=== PATIENT | female | born 1985 | race Caucasian/White ===

== ENCOUNTER 2024-05-19 03:22 | Emergency (ER) | payer MEDICAID, SELFPAY ==
[2024-05-19 03:23] VITALS: BMI 37.2
[2024-05-19 03:50] VITALS: BP 122/86; PULSE 104; RESP 17; TEMP 37; O2SAT 100
[2024-05-19 04:41] VITALS: BP 131/84; PULSE 92; RESP 18; TEMP 36.6; O2SAT 98
[2024-05-19] MEDS: GABAPENTIN 300 MG CAPSULE 600 MG PO (04:46)
--- NOTE | 2024-05-19 04:46 | PD.EDBACK ---
ED Back Injury Pain RME/HPI General Chief Complaint: Back Pain/Injury Stated Complaint: SCIATIC PAIN Time Seen by Provider: 05/19/24 03:36 Source: patient Arrival date/time: 05/19/24 03:22 Mode of arrival: ambulatory Limitations: no limitations RME / HPI RME / HPI Narrative: 39-year-old female with past medical history of sciatica presents for evaluation of right-sided low back pain. She describes it as she sharp with radiation down the back of her right leg. She reports that this is consistent with her previous sciatica symptoms. She notes that she recently comm[place] to and from [place] over a 24-hour period with prolonged sitting in the car. She denies leg swelling, shortness of breath, chest pain, numbness, weakness, bladder and bowel incontinence. She reports that she normally takes gabapentin and naproxen for her sciatica but is out of her prescription. [place] Complaint: back pain Onset (ago): day(s) Duration: intermittent Similar Symptoms Previously: Yes Location: lumbar spine Quality: sharp Radiation: right leg Relieving factors: none Exacerbating factors: movement and supine Related Data Previous Rx's ?Medication ?Instructions ?Recorded gabapentin 300 mg capsule 300 mg PO BID scaitica 30 days 05/19/24 #60 caps naproxen 250 mg tablet 250 mg PO BID PRN pain #30 tabs 05/19/24 Allergies Allergy/AdvReac Type Severity Reaction Status Date / Time No Known Allergies Allergy Verified 05/19/24 03:23 ED Exam General Limitations: Present no limitations Course Orders Category Date Time Status Gabapentin [Neurontin] Med 05/19/24 04:26 Discontinued 600 mg PO X1 ONE Ketorolac Inj [Toradol Inj] Med 05/19/24 04:45 Discontinued 30 mg IM X1 ONE Vital Signs Vital signs: Vital Signs Temperature 98.6 F 05/19/24 03:50 Pulse Rate 104 H 05/19/24 03:50 Respiratory Rate 17 05/19/24 03:50 Blood Pressure 122/86 H 05/19/24 03:50 Pulse Oximetry (%) 100 05/19/24 03:50 Oxygen Delivery Method Room Air 05/19/24 03:50 Back Pain / Injury Medications / Prescriptions Medication administrations:: Medication Administration History Discontinued Medications Gabapentin (Gabapentin 300 Mg Capsule) 600 mg PO X1 ONE Stop: 05/19/24 04:27 Ketorolac Tromethamine (Ketorolac Inj 30 Mg/Ml Vial) 30 mg IM X1 ONE Stop: 05/19/24 04:46 Discharge Plan Plan Patient Disposition: HOME (Self Care) Disposition Comment: stable Prescriptions/Referrals Prescriptions/Med Rec: New gabapentin 300 mg capsule 300 mg PO BID 30 Days Qty: 60 0RF naproxen 250 mg tablet 250 mg PO BID PRN (Reason: pain) Qty: 30 0RF Referrals: No Primary/Family,Physician [Primary Care Provider] - In 1 week Problem List Clinical Impression: Sciatica Patient/Caregiver Discharge Instructions Other Activity Instructions:: Take gabapentin as prescribed for sciatica pain. Take naproxen as needed for back pain. Follow-up with primary care within the next 2 to 3 days for further evaluation and treatment of sciatica. Return to the ED if your symptoms worsen or change. Education Materials: ED Sciatica Print Language: Tamazight Stand Alone Forms: Litzy Award Info., Patient Portal Info Letter PA/ENGINEERING SPECIALIST TECHNICIAN Supervising Physician PA/RA Supervising Physician: Dr. Westbrook
[2024-05-19] MEDS: KETOROLAC INJ 30 MG/ML VIAL IM (04:47)
== END 2024-05-19 04:52 | disposition home or self-care (01) ==
PROVIDERS: Emergency Provider Emergency Medicine
DX: M54.41 Lumbago with sciatica, right side (principal)
CPT/HCPCS: 96372; 99283; J1885; A9270

== ENCOUNTER 2024-05-21 13:00 | Emergency (ER) | payer MEDICAID, SELFPAY ==
[2024-05-21 13:24] VITALS: BP 151/91; PULSE 117; RESP 20; TEMP 36.6; O2SAT 99
[2024-05-21] MEDS: KETOROLAC INJ 60 MG/2 ML VIAL IM (13:48)
[2024-05-21] MEDS: DEXAMETHASONE SOD PHOS INJ 10 MG/ML VIAL IM (13:49)
--- NOTE | 2024-05-21 14:00 | PD.EDADULT ---
ED General RME/HPI General Stated complaint: BACK PAIN Time Seen by Provider: 05/21/24 13:34 Arrival date/time: 05/21/24 13:00 RME / HPI RME / HPI narrative: 39-year-old female patient came in for evaluation regarding worsening sciatica. Patient told me that he had a history of sciatica in the past, was taking naproxen and gabapentin but ran out of medication. Was seen here 3 days ago for the same complaints however this morning despite gabapentin and naproxen sciatica is getting worse, patient is moaning and crying, pain radiates to the left posterior leg. Patient also complained of back pain. Denies any bladder incontinence denies any bowel incontinence. Denies any saddle anesthesia. Patient denies any fever. No medication was taken prior travel. Patient was brought in by EMS. Related Data Previous Rx's ?Medication ?Instructions ?Recorded gabapentin 300 mg capsule 300 mg PO BID scaitica 30 days 05/19/24 #60 caps naproxen 250 mg tablet 250 mg PO BID PRN pain #30 tabs 05/19/24 Allergies Allergy/AdvReac Type Severity Reaction Status Date / Time No Known Allergies Allergy Verified 05/19/24 03:23 Review of Systems Review of Systems Narrative Review of Systems: Review of system reviewed and within normal limits except mentioned in HPI ED Exam Narrative Physical exam: VITAL SIGNS: Reviewed. GENERAL APPEARANCE: Alert and interactive, follows commands, no acute distress, HEAD AND FACE: Non-traumatic. ENT: PERRL, pink conjunctivitis, eyelid no trauma, Mucous membrane moist. NECK: Supple, nontender, no nuchal rigidity. CHEST: No tenderness, no crepitus, no paradoxical movement, no retractions. LUNGS: Clear, well ventilated, symmetric, no rales, no wheezing, no ronchi, no stridor, good breath sounds bilaterally. HEART: Regular rate, regular rhythm, no murmur, no gallops. ABDOMEN: Soft, positive bowel sounds, nondistended, no guarding, nontender, no rebound, no masses, RECTAL: Deferred. GENITAL: Deferred. NEUROLOGICAL: Gross motor function intact sensory function intact, Appropriate for age. MUSCULOSKELETAL: low back tenderness, full range of motion. EXTREMITIES: Left posterior thigh and leg tenderness, full range of motion. SKIN: Color pink, dry, no rash, no lacerations, no abrasions, no contusions. LYMPHATICS: Deferred. Course Quality Measures none Orders Category Date Time Status CBC Stat Lab 05/21/24 18:02 Completed Comprehensive Metabolic Panel Stat Lab 05/21/24 18:02 Completed Partial Thromboplastin Time Stat Lab 05/21/24 18:02 Completed Prothrombin Time with INR Stat Lab 05/21/24 18:02 Completed Dexamethasone Inj [Decadron Inj] Med 05/21/24 13:34 Discontinued 10 mg IM X1 ONE Diazepam [Valium] Med 05/21/24 14:27 Discontinued 10 mg PO X1 ONE Ketorolac Inj [Toradol Inj] Med 05/21/24 13:34 Discontinued 60 mg IM X1 ONE Morphine Inj Med 05/21/24 17:34 Discontinued 5 mg IM X1 ONE Vital Signs Vital signs: Vital Signs Temperature 97.9 F 05/21/24 13:24 Pulse Rate 117 H 05/21/24 13:24 Respiratory Rate 20 05/21/24 13:24 Blood Pressure 151/91 H 05/21/24 13:24 Pulse Oximetry (%) 99 05/21/24 13:24 Oxygen Delivery Method Room Air 05/21/24 13:[address] [facility] Patient data External records reviewed:: None Clinical information provided by:: patient Social determinants that could affect healthcare access:: none Patient has the following chronic illnesses:: History of sciatica How is presenting disease/condition affected by chronic disease/condition?: exacerbated by Evaluation data The following diagnostics were reviewed and interpreted by me:: lab results and radiology exam(s) Lab and/or radiology exams considered but not ordered:: None elopement Interpretation Summary: Elopement Medications Medications considered but not ordered:: None Medication administrations:: Medication Administration History Discontinued Medications Dexamethasone Sodium Phosphate (Dexamethasone Sod Phos Inj 10 Mg/Ml Vial) 10 mg IM X1 ONE Stop: 05/21/24 13:35 Last Admin: 05/21/24 13:49 Dose: 10 mg Documented By: OA Diazepam (Diazepam 5 Mg Tablet) 10 mg PO X1 ONE Stop: 05/21/24 14:28 Last Admin: 05/21/24 14:33 Dose: 10 mg Documented By: OA Ketorolac Tromethamine (Ketorolac Inj 60 Mg/2 Ml Vial) 60 mg IM X1 ONE Stop: 05/21/24 13:35 Last Admin: 05/21/24 13:48 Dose: 60 mg Documented By: OA Morphine Sulfate (Morphine Sulf Inj 10 Mg/Ml Vial) 5 mg IM X1 ONE Stop: 05/21/24 17:35 Last Admin: 05/21/24 17:43 Dose: 5 mg Documented By: Morphine Toradol diazepam and Decadron Consultations Consultation(s) initiated? (list below): No Diagnosis Differential Diagnosis ED Complaint MDM: Leg pain sciatica, drug-seeking behavior Most likely diagnosis given after review of the tests above:: Sciatica Admission Indicated Admission indicated?: not indicated (Elopement) Explain why admission is indicated or not indicated:: None Admission Request Was there a request for admission?: No Disposition Plan Disposition Plan: other (specify) Medical Decision Making MDM Narrative MDM Narrative: Patient eloped from the emergency room Differential Diagnosis Differential Diagnosis: Leg pain sciatica, drug-seeking behavior Lab Data 05/21/24 18:02 05/21/24 18:02 Labs: Lab Results 05/21/24 Range/Units 18:02 WBC 10.4 (3.6-11.0) Thou/mm3 RBC 4.72 (4.00-5.20) Miln/mm3 Hgb 13.9 (12.0-16.0) g/dL Hct 40.3 (36.0-46.0) % MCV 85 (80-100) fL MCH 29.4 (25.0-35.0) pg MCHC 34.5 (31.0-37.0) g/dl RDW Std Deviation 35.9 L (36.4-46.3) fL Plt Count 332 (140-440) Thou/mm3 Neut % (Auto) 94 H (37-80) % Lymph % (Auto) 5 L (10-50) % Grimes % (Auto) 1 (0-12) % Eos % (Auto) 0 (0-10) % Baso % (Auto) 0 (0-2.5) % Neut # (Auto) 9.8 H (1.8-7.7) Thou/mm3 Lymph # (Auto) 0.5 L (1.0-4.8) Thou/mm3 Grimes # (Auto) 0.1 (0.0-0.8) Thou/mm3 Eos # (Auto) 0.0 (0.0-0.5) Thou/mm3 Baso # (Auto) 0.0 (0.0-0.2) Thou/mm3 Immature Gran # (Auto) 0.02 H (0.00-0.00) Thou/mm3 Absolute Nucleated RBC 0.00 (0.00-0.00) Thou/mm3 Immature Gran % 0 (0-0) % Nucleated RBC % 0 (0) /100 WBC PT 10.9 (9.0-12.2) Seconds INR 1.0 (0.9-1.3) APTT 26.7 (22.0-36.0) Seconds Sodium 134 L (136-145) mMol/L Potassium 4.6 (3.4-5.1) mMol/L Chloride 99 (98-107) mMol/L Carbon Dioxide 25.1 (20.0-31.0) mMol/L Anion Gap 10 (7-16) BUN 17 (9-23) mg/dL Creatinine 0.8 (0.6-1.3) mg/dL Estim Creat Clear Calc 113.8 (>60) mL/min eGFR > 60 (60 - ) See Note BUN/Creatinine Ratio 21 H (12-20) Ratio Glucose 105 (74-106) mg/dL Calculated Osmolality 269 L (275-295) Calcium 9.5 (8.3-10.6) mg/dL Corrected Calcium 9.5 (8.5-10.1) mg/dL Total Bilirubin 0.8 (0.3-1.2) mg/dL AST 20 (0-34) U/L ALT 13 (10-49) U/L Alkaline Phosphatase 72 (46-116) U/L Total Protein 7.9 (5.7-8.2) gm/dL Albumin 4.5 (3.5-5.0) gm/dL Globulin 3.4 (2.3-3.5) gm/dL Albumin/Globulin Ratio 1.3 (1.2-2.2) Discharge Plan Plan Patient Disposition: Elopement Prescriptions/Referrals Prescriptions/Med Rec: No Action gabapentin 300 mg capsule 300 mg PO BID 30 Days Qty: 60 0RF naproxen 250 mg tablet 250 mg PO BID PRN (Reason: pain) Qty: 30 0RF Referrals: No Primary/Family,Physician [Primary Care Provider] - In 1 week Problem List Clinical Impression: Sciatica Patient/Caregiver Discharge Instructions Print Language: Arabic
[2024-05-21 14:26] VITALS: BMI 41.1
[2024-05-21] MEDS: DIAZEPAM 5 MG TABLET 10 MG PO (14:33)
--- NOTE | 2024-05-21 17:35 | PC.NURSE ---
PREETI Karimi gave verbal order to this service writer for MS 5mg IM x1 now for severe pain.
[2024-05-21] MEDS: MORPHINE SULF INJ 10 MG/ML VIAL 5 MG IM (17:43)
[2024-05-21 18:20] LABS: Basophils % (Auto) 0 % (0-2.5); Eosinophils % (Auto) 0 % (0-10); Hematocrit 40.3 % (36.0-46.0); Hemoglobin 13.9 g/dL (12.0-16.0); Immature Granulocytes % (Auto) 0 % (0-0); Immature Granulocytes Auto 0.02 Thou/mm3 (0.00-0.00); Lymphocytes # (Auto) 0.5 Thou/mm3 (1.0-4.8); Lymphocytes % (Auto) 5 % (10-50); Mean Corpuscular HGB Conc 34.5 g/dl (31.0-37.0); Mean Corpuscular Hemoglobin 29.4 pg (25.0-35.0); Mean Corpuscular Volume 85 fL (80-100); Monocytes # (Auto) 0.1 Thou/mm3 (0.0-0.8); Monocytes % (Auto) 1 % (0-12); Neutrophils # (Auto) 9.8 Thou/mm3 (1.8-7.7); Neutrophils % (Auto) 94 % (37-80); Nucleated Red Blood Cell % 0 /100 WBC (0); Platelet Count 332 Thou/mm3 (140-440); RDW Standard Deviation 35.9 fL (36.4-46.3); Red Blood Count 4.72 Miln/mm3 (4.00-5.20); White Blood Count 10.4 Thou/mm3 (3.6-11.0)
[2024-05-21 18:26] LABS: Alanine Aminotransferase 13 U/L (10-49); Albumin, Serum 4.5 gm/dL (3.5-5.0); Albumin/Globulin Ratio 1.3 (1.2-2.2); Alkaline Phosphatase 72 U/L (46-116); Anion Gap 10 (7-16); Aspartate Amino Transferase 20 U/L (0-34); BUN/Creatinine Ratio 21 Ratio (12-20); Bilirubin,Total 0.8 mg/dL (0.3-1.2); Blood Urea Nitrogen 17 mg/dL (9-23); Calcium 9.5 mg/dL (8.3-10.6); Calcium (Corrected) 9.5 mg/dL (8.5-10.1); Carbon Dioxide 25.1 mMol/L (20.0-31.0); Chloride 99 mMol/L (98-107); Creatinine (Component) 0.8 mg/dL (0.6-1.3); Estimated Creatinine Clearance 113.8 mL/min (>60); Globulin 3.4 gm/dL (2.3-3.5); Glucose 105 mg/dL (74-106); Osmolality,Calculated 269 (275-295); Potassium 4.6 mMol/L (3.4-5.1); Sodium 134 mMol/L (136-145); Total Protein 7.9 gm/dL (5.7-8.2); eGFR > 60 See Note
[2024-05-21 18:28] LABS: Partial Thromboplastin Time 26.7 Seconds (22.0-36.0); Prothrombin Time 10.9 Seconds (9.0-12.2)
--- NOTE | 2024-05-21 20:37 | PC.NURSE ---
Patient found in hallway by RT struggling to walk at 1850, staff assisted patient into wheelchair. Patient stated I'm leaving, take me to the door . This designer writer encouraged patient to stay for imaging studies and further pain management, patient stated I am getting the fuck out of here and preceded to exit to lobby. Patient refused to sign an AMA form. Provider Trev made aware.
== END 2024-05-21 19:00 | disposition left against medical advice (07) ==
PROVIDERS: Nurse Practitioner Family; Emergency Provider Emergency Medicine
DX: M54.42 Lumbago with sciatica, left side (principal)
CPT/HCPCS: 36415; 80053; 80307; 81025; 85025; 85610; 85730; 96372; 99281; J1100; J1885; J2270; A9270

== ENCOUNTER → 2024-07-15 | Outpatient (CLI) | payer MEDICAID, SELFPAY ==
--- NOTE | 2024-07-15 08:00 | XR_ITS ---
Examination: MRI lumbar spine without contrast Date and time of exam: July 15, 2024 0913 hours INDICATIONS: Onset low back pain beginning 2 months ago difficulty walking, pain radiates down the left side Technique: Multiple MRI axial and sagittal sections lumbar spine. Sagittal T2-weighted images, TR 3500, TE 118 T1 weighted transverse sections, TR 688 T8.5, T2-weighted sagittal sections T1 weighted sagittal sections TR 621, TE 30 T2 axial sections, TR 4, 190, TE 84. Findings: Satisfactory alignment lumbar vertebral bodies on the lateral view Moderate disc narrowing posteriorly L5-S1 Normal marrow signal lumbar vertebral bodies No lumbar fracture No spondylolisthesis L5-S1 10 mm left paracentral subarticular foraminal disc bulge displacing the left S1 nerve root and producing moderate left L5 ganglionic compression More cephalad levels are unremarkable IMPRESSION: L5-S1 large, 10 mm, left paracentral subarticular foraminal disc bulge displacing the left S1 nerve root and producing moderate left L5 ganglionic compression
== END | disposition home or self-care (01) ==
PROVIDERS: PCP Family Medicine; Referring Provider Physician Assistant; Visit Provider Physician Assistant
DX: M51.370 Other intervertebral disc degeneration, lumbosacral region with discogenic back pain only (principal); G95.20 Unspecified cord compression
CPT/HCPCS: 72148

== ENCOUNTER → 2024-10-02 | Outpatient (CLI) | payer MEDICAID, SELFPAY ==
--- NOTE | 2024-10-02 16:31 | XR_ITS ---
Examination: Lumbar spine 7 views TECHNIQUE: AP, lateral, coned-down lateral lower lumbar spine, standing lateral flexion, standing lateral extension, RPO, LPO, 7 views Date and time: October 02, 2024, 1649 hours INDICATIONS: Low back pain beginning 4 months ago. FINDINGS: Thoracolumbar dextroscoliosis 6 degrees Mild osteopenia Intrauterine device slightly left of midline Mild diffuse facet arthropathy No lumbar fracture Moderate disc narrowing L5-S1 Significantly reduced range of motion between flexion and extension With flexion 3 mm anterolisthesis L5 on S1 IMPRESSION: Moderate degenerative disc disease L5-S1 With flexion 3 mm anterolisthesis L5 on S1
== END | disposition home or self-care (01) ==
LOC: CDIM 16:25
PROVIDERS: PCP Family Medicine; Referring Provider Physician Assistant; Visit Provider Physician Assistant
DX: M51.372 Other intervertebral disc degeneration, lumbosacral region with discogenic back pain and lower extremity pain (principal)
CPT/HCPCS: 72114

== ENCOUNTER 2024-10-30 01:57 | Emergency (ER) | payer MEDICAID, SELFPAY ==
[2024-10-30 01:58] VITALS: BMI 36.1
[2024-10-30 02:36] VITALS: BP 135/86; PULSE 95; RESP 16; TEMP 36.9; O2SAT 97
[2024-10-30 03:23] LABS: Strep A Rapid Negative (Negative)
--- NOTE | 2024-10-30 04:07 | EDNOTE_ITS ---
Upper Respiratory Inf. RME/HPI General Chief Complaint: Flu Like Symptoms Stated Complaint: FLU LIKE SYMPTOMS Time Seen by Provider: 10/30/24 02:48 Arrival date/time: 10/30/24 01:57 39F with history of asthma and possible lupus/RA (not on biologic) presents to ED with 1 day of cough, sore throat, body aches, and fevers/chills. Recent COVID contact. Limitations: no limitations Related Data Previous Rx's ?Medication ?Instructions ?Recorded naproxen 250 mg tablet 250 mg PO BID PRN pain #30 t abs 05/19/24 Allergies Allergy/AdvReac Type Severity Reaction Status Date / Time No Known Allergies Allergy Verified 05/19/24 03:23 Review of Systems Review of Systems Systems Reviewed: All systems reviewed, normal except as documented Constitutional Constitutional: Reports system reviewed and no additional complaints, except as documented, Reports as per HPI, Reports body ache(s), Reports chills, Reports fever(s) and Denies headache(s) ENT Ears, Nose, Mouth, and Throat: Reports as per HPI, Denies disequilibrium, Denies headache(s) and Reports sore throat Cardiovascular Cardiovascular: Reports system reviewed and no additional complaints, except as documented, Denies chest pain and Denies dyspnea Respiratory Respiratory: Reports system reviewed and no additional complaints, except as documented, Reports as per HPI, Reports cough and Denies dyspnea Gastrointestinal Gastrointestinal: Reports system reviewed and no additional complaints, except as documented, Denies abdominal pain, Denies nausea and Denies vomiting Neurologic Neurologic: Reports system reviewed and no additional complaints, except as do cumented, Denies confusion, Denies disequilibrium and Denies headache(s) Psychiatric Psychiatric: Denies confusion Past Medical History Social History SMOKING STATUS: Never smoker ED Exam General Limitations: Present no limitations General appearance: Present alert and in no apparent distress Head Head exam: Present atraumatic Eye Eye exam: Present normal appearance, PERRL and EOMI ENT ENT exam: Present mucous membranes moist Expanded ENT Exam Throat exam: Present tonsillar erythema; Absent tonsillomegaly, tonsillar exudate, R peritonsillar mass, L peritonsillar mass or muffled voice Neck Neck exam: Present normal inspection, full ROM and trachea midline Chest Chest inspection: Present normal inspection and symmetric chest wall rise Respiratory Respiratory exam: Present normal lung sounds bilaterally Cardiovascular Cardiovascular exam: Present regular rate, normal rhythm and normal heart sounds Abdominal Exam Abdominal exam: Present soft and normal bowel sounds Extremities Exam Extremities exam: Present normal inspection and full ROM Back Exam Back exam: Present normal inspection and full ROM Neurological Exam Neurological exam: Present alert, oriented X3 and CN II-XII intact Psychiatric Psychiatric exam: Present normal affect and normal mood Skin Skin exam: Present warm, dry, intact and normal color Course Quality Measures none Orders Category Date Time Status Bedside COVID-19 Antigen Test NOW Care 10/30/24 02:15 Completed Bedside Influenza A&B Antigen Test NOW Care 10/30/24 02:15 Completed Strep A Rapid Stat Lab 10/30/24 03:00 Completed Vital Signs Vital signs: Vital Signs Temperature 98.4 F 10/30/24 02:36 Pulse Rate 95 10/30/24 02:36 Respiratory Rate 16 10/30/24 02:36 Blood Pressure 135/86 H 10/30/24 02:36 Pulse Oximetry (%) 97 10/30/24 02:36 Oxygen Delivery Method Room Air 10/30/24 02:36 O2 at 97% on RA and WNLs Upper Respiratory Infection MDM Narrative MDM Narrative:: 39F with history of asthma and possible lupus/RA (not on biologic) presents to ED with 1 day of cough, sore throat, body aches, and fevers/chills. Recent COVID contact. Physical exam reveals nasal congestion but clear lungs. Red oropharynx. Normal W OB. Patient is afebrile, calm, and alert. Swabs neg. Patient left prior to receiving DC paperwork. Patient data External records reviewed:: [facility] previous records Clinical information provided by:: patient Social determinants that could affect healthcare access:: none Patient has the following chronic illnesses:: asthma and lupus/RA How is presenting disease/condition affected by chronic disease/condition?: exacerbated by Evaluation data The following diagnostics were reviewed and interpreted by me:: lab results Lab and/or radiology exams considered but not ordered:: ordered Interpretation Summary: above Medications / Prescriptions Medications or Prescriptions considered but not ordered:: not ordered Medication administrations:: n/a Consultations Consultation(s) initiated? (list below): No Diagnosis Upper Respiratory Differential Diagnosis: upper respiratory infection, croup, otitis media, sinusitis, viral infection, bronchitis, influenza and pharyngitis Most likely diagnosis given after review of the tests above:: URI Admission Indicated Admission indicated?: not indicated Admission Request Was there a request for admission?: No Disposition Plan Disposition Plan: other (specify) (left prior to DC paperwork) Discharge Plan Plan Patient Disposition: HOME (Self Care) Discharge Disposition comment: Stable Prescriptions/Referrals Prescriptions/Med Rec: No Action naproxen 250 mg tablet 250 mg PO BID PRN (Reason: pain) Qty: 30 0RF Referrals: Demetrio Cummings MD [Primary Care Provider] - In 1 week Problem List Clinical Impression: Upper respiratory infection Patient/Caregiver Discharge Instructions Education Materials: ED URI, Viral, No Abx (Adult) Additional Instructions: Please follow-up with PCP within 24-48 hours and return immediately if symptoms worsen. Ibuprofen/Tylenol can be used simultaneously for greater fever/pain control. Benadryl is good for cough, congestion, and sleep. Keep hydrated. Advance diet as tolerated. Print Language: Cymraes Stand Alone Forms: Patient Portal Info Letter PA/MAINTENANCE HELPER UTILITY ENGINEER Supervising Physician ALYSE/RA Supervising Physician: Dr. Tariq
== END 2024-10-30 03:40 | disposition home or self-care (01) ==
PROVIDERS: Physician Assistant; Emergency Provider Emergency Medicine; PCP Family Medicine
DX: J06.9 Acute upper respiratory infection, unspecified (principal); Z20.822 Contact with and (suspected) exposure to COVID-19
CPT/HCPCS: 87400; 87651; 87811; 99283

== ENCOUNTER 2025-01-05 15:06 | Emergency (ER) | payer MEDICAID, SELFPAY ==
--- NOTE | 2025-01-05 15:14 | PC.NURSE ---
SECURITY SAID PT LEFT STATING SHE WAS GOING TO THE CLINIC INSTEAD.
== END 2025-01-05 15:15 | disposition left against medical advice (07) ==
LOC: SERX 15:18
PROVIDERS: Emergency Provider Emergency Medicine
DX: Z53.21 Procedure and treatment not carried out due to patient leaving prior to being seen by health care provider (principal)
CPT/HCPCS: 99281